=== PATIENT | female | born 1995 | race Caucasian/White ===

== ENCOUNTER 2021-08-11 13:44 | Inpatient (IN) | payer MEDICAID ==
[~2021-08-11] VITALS: Ht 162.6 cm; Wt 105.0 kg
[2021-08-11] MEDS ORDERED: SODIUM CHLORIDE 0.9% 1,000 ML IV ONE ×3 (14:45→17:30)
[2021-08-11] MEDS ORDERED: CEPH-509 PO (16:21)
[2021-08-11 16:38] LABS: Basophils # (auto) 0 10 ^3/uL (0-0.2); Basophils % (auto) 0.2 % (0.0-2.0); Eosinophils # (auto) 0 10 ^3/uL (0-0.8); Eosinophils % (auto) 0.2 % (0.0-7.0); Hematocrit 36.9 % (36.0-46.0); Mean Corpuscular Hgb Conc. 32.9 g/dL (32.0-36.0); Monocytes # (auto) 0.7 10 ^3/uL (0-1.3)
[2021-08-11 16:40] LABS: Hemoglobin 12.1 g/dL (12.2-16.2); Lymphocytes % (auto) 5.9 % (10.0-50.0); Mean Corpuscular Volume 75.8 fL (80.0-100.0); Monocytes % (auto) 4.2 % (0.0-12.0); Neutrophils # (auto) 15.4 10 ^3/uL (1.6-8.6); Neutrophils % (auto) 89.5 % (37.0-80.0); Red Blood Cells 4.86 10^6/uL (4.0-5.20); Red Cell Distribution Width 16.6 % (11.8-14.3); White Blood Cell 17.2 10^3/uL (4.4-10.8)
[2021-08-11 16:52] LABS: Albumin 3.7 g/dL (3.4-5.0); BUN/Creatinine Ratio 11.4; Calcium 8.7 mg/dL (8.5-10.1); Potassium 4.1 mmol/L (3.5-5.1)
[2021-08-11 16:55] LABS: Bilirubin, Total 0.4 mg/dL (0.2-1.0); Total Protein 7.9 g/dL (6.4-8.2)
[2021-08-11] MEDS ORDERED: cefTRIAXone 1GM/50ML D5W 50 ML IV ONE (17:00)
[2021-08-11 17:12] LABS: Urine Bacteria FEW /hpf (None Seen); Urine Blood 3+ /uL (Negative); Urine Mucus MODERATE (None Seen); Urine Specific Gravity 1.028 (1.001-1.035); Urine WBC 272 /hpf (0 - 5)
[2021-08-11] MEDS ORDERED: ONDANSETRON HCL 4 MG/2 ML VIAL IV ONE (17:30)
[2021-08-11] MEDS ORDERED: MORPHINE SULFATE INJ 2 MG/ml SYRG IV ONE (17:30)
[2021-08-12] MEDS ORDERED: TEMAZEPAM 15 MG CAP PO PRN (00:45)
[2021-08-12] MEDS ORDERED: ACETAMINOPHEN 325 MG TAB PO PRN (00:45)
[2021-08-12 09:00] VITALS: BP 107/61
[2021-08-12] MEDS: PANTOPRAZOLE 40 MG TAB PO SCH (10:00)
[2021-08-12] MEDS ORDERED: cefTRIAXone 1GM/50ML D5W 50 ML IV ONE (12:00)
[2021-08-12] MEDS: SODIUM CHLORIDE 0.9% 1,000 ML IV SCH ×2 (12:57→22:10)
[2021-08-12 13:12] VITALS: BP 103/63
[2021-08-12 17:00] VITALS: BP 103/60
[2021-08-12] MEDS: HYDROcodone-ACET 5/325MG TAB PO PRN (17:32)
[2021-08-12 22:08] VITALS: BP 105/66
[2021-08-12] MEDS: MORPHINE SULFATE INJ 2 MG/ml SYRG IV PRN (22:40)
[2021-08-13] MEDS: HYDROcodone-ACET 5/325MG TAB PO PRN ×2 (00:10→16:36)
[2021-08-13 05:00] VITALS: BP 108/62
[2021-08-13] MEDS: SODIUM CHLORIDE 0.9% 1,000 ML IV SCH ×2 (06:08→18:00)
[2021-08-13] MEDS: MORPHINE SULFATE INJ 2 MG/ml SYRG IV PRN (06:43)
[2021-08-13 07:03] LABS: Basophils # (auto) 0 10 ^3/uL (0-0.2); Basophils % (auto) 0.3 % (0.0-2.0); Eosinophils # (auto) 0.1 10 ^3/uL (0-0.8); Mean Corpuscular Hemoglobin 25.3 pg (28.0-32.0)
[2021-08-13 07:04] LABS: Hematocrit 32.3 % (36.0-46.0); Hemoglobin 10.8 g/dL (12.2-16.2); Lymphocytes # (auto) 1.8 10 ^3/uL (0.4-5.4); Lymphocytes % (auto) 17.2 % (10.0-50.0); Mean Corpuscular Hgb Conc. 33.4 g/dL (32.0-36.0); Mean Corpuscular Volume 75.8 fL (80.0-100.0); Monocytes % (auto) 9.9 % (0.0-12.0); Neutrophils # (auto) 7.4 10 ^3/uL (1.6-8.6); Neutrophils % (auto) 71.6 % (37.0-80.0); Red Blood Cells 4.26 10^6/uL (4.0-5.20); Red Cell Distribution Width 16.9 % (11.8-14.3); White Blood Cell 10.3 10^3/uL (4.4-10.8)
[2021-08-13 07:21] LABS: BUN/Creatinine Ratio 8.9; Calcium 8.1 mg/dL (8.5-10.1); Potassium 3.7 mmol/L (3.5-5.1)
[2021-08-13 09:00] VITALS: BP 100/66
[2021-08-13] MEDS: PANTOPRAZOLE 40 MG TAB PO SCH (09:27)
[2021-08-13] MEDS: cefTRIAXone 1GM/50ML D5W 50 ML IV SCH (09:27)
[2021-08-13] MEDS ORDERED: MANNITOL FTV 25% 12.5 GM/50 ML 50 ML IV ONE (11:00)
[2021-08-13] MEDS ORDERED: TAMSULOSIN HYDROCHLORIDE 0.4 MG CAP PO ONE (11:00)
[2021-08-13 13:00] VITALS: BP 118/78
[2021-08-13 17:00] VITALS: BP 100/65
[2021-08-13] MEDS ORDERED: KETOROLAC TROMETH 30 MG/ML 1ML VIAL IV PRN (17:00)
[2021-08-13] MEDS ORDERED: TAMSULOSIN HYDROCHLORIDE 0.4 MG CAP PO SCH (18:00)
[2021-08-13 21:50] VITALS: BP 99/61
[2021-08-14 04:05] LABS: Basophils # (auto) 0 10 ^3/uL (0-0.2); Eosinophils # (auto) 0.2 10 ^3/uL (0-0.8); Hemoglobin 11.2 g/dL (12.2-16.2); Lymphocytes # (auto) 1.8 10 ^3/uL (0.4-5.4); Nucleated Red Blood Cells % 0.1 %
[2021-08-14 04:08] LABS: Basophils % (auto) 0.3 % (0.0-2.0); Eosinophils % (auto) 2.3 % (0.0-7.0); Hematocrit 32.3 % (36.0-46.0); Mean Corpuscular Hemoglobin 25.9 pg (28.0-32.0); Mean Corpuscular Hgb Conc. 34.6 g/dL (32.0-36.0); Mean Corpuscular Volume 74.7 fL (80.0-100.0); Monocytes # (auto) 0.7 10 ^3/uL (0-1.3); Neutrophils # (auto) 5.5 10 ^3/uL (1.6-8.6); Neutrophils % (auto) 66.4 % (37.0-80.0); Red Blood Cells 4.32 10^6/uL (4.0-5.20); Red Cell Distribution Width 16.1 % (11.8-14.3); White Blood Cell 8.2 10^3/uL (4.4-10.8)
[2021-08-14 04:30] LABS: BUN/Creatinine Ratio 10.3; Calcium 8.4 mg/dL (8.5-10.1); Potassium 3.8 mmol/L (3.5-5.1)
[2021-08-14] MEDS: SODIUM CHLORIDE 0.9% 1,000 ML IV SCH (04:33)
[2021-08-14 05:02] VITALS: BP 108/64
[2021-08-14 09:00] VITALS: BP 113/65
[2021-08-14] MEDS: PANTOPRAZOLE 40 MG TAB PO SCH (10:12)
[2021-08-14] MEDS: cefTRIAXone 1GM/50ML D5W 50 ML IV SCH (10:12)
[2021-08-14] MEDS ORDERED: TAM04C PO (10:58)
[2021-08-14] MEDS ORDERED: LEVO500T31 PO (11:01)
== END 2021-08-14 12:48 | disposition home or self-care (01) | DRG 720 ==
LOC: ER 14:00 → OVERFLOW 08-12 00:44 → EAST 08-12 08:45
PROVIDERS: ADMIT Nurse Practitioner; ATTEND Internal Medicine
DX: A41.9 Sepsis, unspecified organism (principal); N13.6 Pyonephrosis; E66.01 Morbid (severe) obesity due to excess calories; Z20.822 Contact with and (suspected) exposure to COVID-19; N20.2 Calculus of kidney with calculus of ureter; Z68.39 Body mass index [BMI] 39.0-39.9, adult
CPT/HCPCS: 36415; 74176; 80048; 80053; 81001; 83690; 84702; 85025; 96361; 96365; 96375; G0378; J0696; J1885; J2405